=== PATIENT | female | born 1990 | race African-American/Black ===

== ENCOUNTER 2017-06-10 20:01 | Emergency (ER) | payer OTHER ==
[2017-06-10 20:27] VITALS: BP 149/80; PULSE 106; BMI 40.2
--- NOTE | 2017-06-10 21:50 | PDOC ---
History of Present Illness - General Chief Complaint: Cold Symptoms Stated Complaint: COLD SYMPTOMS Time Seen by Provider: 06/10/17 21:49 History Source: Patient Exam Limitations: No Limitations - History of Present Illness Initial Comments: 06/10/17 21:57 Patient came for evaluation of cough, body aches, fevers and chills, moist nonproductive cough, and thinks has the flu. 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 Has used TheraFlu and fluids with some resolved. Illness and fever started yesterday Timing/Duration: reports: getting worse Severity: reports: mild, moderate Associated Symptoms: reports: cough, dizziness, facial pain, fever/chills, muscle aches, nasal congestion, nasal drainage, sore throat Past History - Travel Traveled outside of the country in the last 30 days: No Close contact w/someone who was outside of country & ill: No - Past Medical History Allergies/Adverse Reactions: Allergies Allergy/AdvReac Type Severity Reaction Status Date / Time No Known Allergies Allergy Verified 01/25/16 07:10 Home Medications: Ambulatory Orders Ibuprofen [Motrin -] 400 mg PO QID PRN #28 tablet 06/10/17 Oseltamivir Phosphate [Tamiflu -] 75 mg PO BID #10 capsule 06/10/17 Anemia: Yes - Immunization History Immunization Up to Date: Yes - Suicide/Smoking/Psychosocial Hx Smoking History: Current some day smoker Have you smoked in the past 12 months: No Number of Cigarettes Smoked Daily: 4 Information on smoking cessation initiated: No Hx Alcohol Use: No Drug/Substance Use Hx: No Substance Use Type: None Review of Systems - Review of Systems Able to Perform ROS?: Yes Is the patient limited Telugu proficient: Yes Constitutional: Yes: Symptoms Reported, See HPI, Fever, Loss of Appetite, Malaise HEENTM: Yes: Symptoms Reported, Nose Congestion, Throat Pain Respiratory: Yes: Symptoms reported, See HPI, Cough Cardiac (ROS): No: Symptoms Reported Musculoskeletal: Yes: Symptoms Reported, See HPI, Muscle Pain All Other Systems: Reviewed and Negative *Physical Exam - Vital Signs Last Vital Signs Temp Pulse Resp BP Pulse Ox 102.2 F H 106 H 20 149/80 100 06/10/17 20:24 06/10/17 20:24 06/10/17 20:24 06/10/17 20:24 06/10/17 20:24 - Physical Exam General Appearance: Yes: Nourished, Appropriately Dressed, Apparent Distress, Mild Distress, Moderate Distress HEENT: positive: TMs Normal (adjusted but landmarks easily visualized), Tonsillar Erythema, Nasal Congestion, Rhinorrhea. negative: Tonsillar Exudate Neck: positive: Supple, Lymphadenopathy (R), Lymphadenopathy (L) Respiratory/Chest: positive: Lungs Clear (worse but clear). negative: Wheezing Cardiovascular: positive: Regular Rate Gastrointestinal/Abdominal: positive: Soft. negative: Tender Musculoskeletal: positive: Normal Inspection Extremity: positive: Normal Capillary Refill, Normal Inspection, Normal Range of Motion Integumentary: positive: Dry, Warm, Pale Neurologic: positive: retail buyer II-XII NML intact, Fully Oriented, Alert, Normal Mood/ Affect, Normal Response, Motor Strength 09/17 Progress Note - Progress Note Progress Note: Influenzal type illness, will treat with Tamiflu *DC/Admit/Observation/Transfer Diagnosis at time of Disposition: Influenzal acute upper respiratory infection - Discharge Dispostion Disposition: HOME Condition at time of disposition: Stable Admit: No - Referrals Referrals: Erwin Wahl [Primary Care Provider] - - Patient Instructions Printed Discharge Instructions: DI for Viral Upper Respiratory Infection -- Adult Additional Instructions: Rest, drink lots of fluids: Teas, water, soups, Pedialyte Saltwater gargles Steamy showers/seem to face break up mucus Old-fashioned treatments help! Avoid contact with others until fevers and cough resolved as this is very contagious Lots of handwashing and good hygiene Continue [id number] medications for symptomatic relief Tylenol or Motrin for fever and pain Take all of Tamiflu as directed: 1 tab every 12 hours for 5 days Followup with private physician in one to 2 days as needed or if worsening Return to emergency department for worsened symptoms, fevers, dehydration Influenza takes between 5 and 7 days for resolution To not participate in any activity, work, or school until fevers and cough are gone for at least one day - Post Discharge Activity Forms/Work/School Notes: Back to Work
[2017-06-10 21:54] VITALS: TEMP 100.4
== END 2017-06-10 22:01 | disposition home or self-care (01) ==
LOC: JERFT 20:01
DX: J11.1 Influenza due to unidentified influenza virus with other respiratory manifestations (principal); F17.210 Nicotine dependence, cigarettes, uncomplicated
CPT/HCPCS: 99281-25

== ENCOUNTER 2018-04-01 15:30 | Emergency (ER) | payer OTHER ==
[2018-04-01 15:36] VITALS: BP 150/106; PULSE 81; TEMP 98.8; BMI 40.2
--- NOTE | 2018-04-01 18:08 | PDOC ---
History of Present Illness - General Chief Complaint: Back Pain Stated Complaint: VAGINAL SxS - History of Present Illness Initial Comments: Emily Hamilton is a 27yo woman who presents today because she had her IUD removed, and there was possibly some tissue attatched to the device. The physician she saw earlier told her "it might be an embryo" and she was concerned about it. She additionally reports lower abdominal and low back cramps , but she was told that was normal after IUD removal. Past History - Past Medical History Allergies/Adverse Reactions: Allergies Allergy/AdvReac Type Severity Reaction Status Date / Time No Known Allergies Allergy Verified 04/01/18 15:36 Home Medications: Ambulatory Orders Ibuprofen [Motrin -] 400 mg PO QID PRN #28 tablet 06/10/17 Oseltamivir Phosphate [Tamiflu -] 75 mg PO BID #10 capsule 06/10/17 Anemia: Yes COPD: No - Immunization History Immunization Up to Date: Yes - Suicide/Smoking/Psychosocial Hx Smoking History: Never smoked Have you smoked in the past 12 months: No Number of Cigarettes Smoked Daily: 4 Hx Alcohol Use: No Drug/Substance Use Hx: No Substance Use Type: None Review of Systems - Review of Systems Comments:: 04/01/18 18:04 Could not obtain *Physical Exam - Vital Signs Last Vital Signs Temp Pulse Resp BP Pulse Ox 98.8 F 81 18 150/106 H 100 04/01/18 15:32 04/01/18 15:32 04/01/18 15:32 04/01/18 15:32 04/01/18 15:32 - Physical Exam Comments: 04/01/18 18:04 Declined exam Medical Decision Making - Medical Decision Making 04/01/18 18:05 Emily Hamilton is a 27yo who presented today due to concerns that there was an "embryo attached" to her IUD when it was removed earlier today. She refused to be examined and eloped from the ED prior to any workup being completed. *DC/Admit/Observation/Transfer Diagnosis at time of Disposition: Back ache - Discharge Dispostion Disposition: ELOPED Decision to Admit order: No - Referrals - Patient Instructions - Post Discharge Activity
--- NOTE | 2018-04-01 18:40 | PDOC ---
Attending Attestation - Resident Resident Name: Carine Breaux - ED Attending Attestation I have performed the following: I have examined & evaluated the patient, The case was reviewed & discussed with the resident, I agree w/resident's findings & plan, Exceptions are as noted - HPI HPI: 04/01/18 18:40 This patient eloped from the ER prior to my assessment Please see patient's chart - Physicial Exam PE: 04/01/18 18:40 Unable to assess - Medical Decision Making 04/01/18 18:40 This patient has eloped
== END 2018-04-01 18:46 | disposition left against medical advice (07) ==
LOC: JER 15:30
DX: M54.9 Dorsalgia, unspecified (principal)
CPT/HCPCS: 99281-25

== ENCOUNTER 2018-08-04 21:16 | Emergency (ER) | payer OTHER ==
--- NOTE | 2018-08-04 21:23 | PDOC ---
Rapid Medical Evaluation Time Seen by Provider: 08/04/18 21:19 Medical Evaluation: Allergies Allergy/AdvReac Type Severity Reaction Status Date / Time No Known Allergies Allergy Verified 04/01/18 15:36 08/04/18 21:19 I have performed a brief in-person evaluation of this patient. 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 Worst headache of life. Slow onset. Associated with dizziness Pertinent physical exam findings:NAD I have ordered the following:U preg CT head The patient will proceed to the ED for further evaluation. 08/04/18 21:21 08/04/18 21:22 Discharge Disposition - Diagnosis Headache - Referrals - Patient Instructions - Post Discharge Activity
[2018-08-04 21:24] VITALS: PULSE 85; TEMP 98.7; BMI 40.6
--- NOTE | 2018-08-04 21:59 | PDOC ---
History of Present Illness - General Chief Complaint: Headache Stated Complaint: REFERRAL FROM PROVIDER Time Seen by Provider: 08/04/18 21:19 - History of Present Illness Initial Comments: 08/04/18 21:58 27 yo F with no past medical history presents to the emergency department with 4 days of headache located on the left temporal and occipital region. Per the patient, she had migraines in childhood, but cannot state if these headaches feel like them. She states when she was 2 months old, she had a cyst removed from her head that was outside the skull. 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 Per the patient, the headache is constant, throbbing, 8/10, without visual changes or FND, relieves slightly with motrin, and worsens with light and sound and states "worst headache of my life". Relieves with less working at her job and in darkness. Per the patient, she states the headache was at its worst on Tuesday night and became slightly better yesterday and today. She denies trauma. Denies the following: fever, chills, ears/nose/throat pain, ear ringing , nasal congestion, recent URI, rhinorrhea, chest pain, nausea, vomiting, SOB, abdominal pain, dysuria, hematuria, diarrhea, hematochezia, and leg pain/ swelling. Endorses lightheadedness, anxiety, and increased stress. Denies poor PO intake. Shx: 2x C/S Allergies: NKDA Meds: None Social: Endorses tobacco and alcohol use. Denies substance abuse. 08/04/18 22:00 08/04/18 22:05 Past History - Past Medical History Allergies/Adverse Reactions: Allergies Allergy/AdvReac Type Severity Reaction Status Date / Time No Known Allergies Allergy Verified 04/01/18 15:36 Home Medications: Ambulatory Orders NK [No Known Home Medication] 08/04/18 Anemia: Yes COPD: No - Immunization History Immunization Up to Date: Yes - Suicide/Smoking/Psychosocial Hx Smoking History: Unknown if ever smoked Have you smoked in the past 12 months: No Number of Cigarettes Smoked Daily: 4 Information on smoking cessation initiated: No Hx Alcohol Use: No Drug/Substance Use Hx: No Substance Use Type: None Review of Systems - Review of Systems Able to Perform ROS?: Yes Is the patient limited Kiswahili proficient: No Constitutional: No: Chills, Diaphoresis, Fever HEENTM: No: Eye Pain, Blurred Vision, Recent change in vision, Double Vision, Ear Pain, Nose Pain, Throat Pain, Mouth Pain Respiratory: No: Cough, SOB with Exertion, Hemoptysis Cardiac (ROS): No: Chest Pain, Lightheadedness, Palpitations ABD/GI: No: Constipated, Diarrhea, Difficulty Swallowing, Nausea, Rectal Bleeding, Vomiting, Tarry Stools : No: Burning, Dysuria, Hematuria, Urgency Musculoskeletal: No: Back Pain, Joint Pain, Neck Pain Integumentary: No: Bruising, Erythema, Rash Neurological: Yes: Headache. No: Numbness, Tingling, Tremors, Weakness, Ataxia , Dizziness Psychiatric: No: Change in Appetite Endocrine: No: Unexplained Weight Gain Hematologic/Lymphatic: Yes: Anemia *Physical Exam - Vital Signs Last Vital Signs Temp Pulse Resp BP Pulse Ox 98.7 F 85 20 168/105 H 99 08/04/18 21:20 08/04/18 21:20 08/04/18 21:20 08/04/18 21:20 08/04/18 21:20 - Physical Exam General Appearance: Yes: Nourished, Appropriately Dressed, Obese. No: Apparent Distress, Intoxicated HEENT: positive: EOMI, TIARA, Normal ENT Inspection, Normal Voice, Symmetrical, Pharynx Normal, Hearing Grossly Normal, TM Dull (left side). negative: TMs Normal, TM Bulging, TM Erythema, Excessive drooling Neck: positive: Trachea midline, Supple. negative: Tender, Lymphadenopathy (R) , Lymphadenopathy (L), Tender lateral, Tender midline Respiratory/Chest: positive: Lungs Clear, Normal Breath Sounds. negative: Chest Tender, Respiratory Distress, Accessory Muscle Use, Crackles, Rales, Rhonchi, Stridor, Wheezing Cardiovascular: positive: Regular Rhythm, Regular Rate, S1, S2. negative: Systolic Murmur Gastrointestinal/Abdominal: positive: Normal Bowel Sounds, Flat, Soft. negative : Tender, Distended, Guarding, Rebound Lymphatic: negative: Adenopathy Musculoskeletal: positive: Normal Inspection. negative: CVA Tenderness, Vertebral Tenderness Extremity: positive: Normal Capillary Refill, Normal Inspection, Normal Range of Motion. negative: Tender, Swelling, Calf Tenderness Integumentary: positive: Normal Color, Dry, Warm. negative: Swelling, Ecchymosis Neurologic: positive: ambulance paramedic II-XII NML intact, Fully Oriented, Alert, Normal Mood/ Affect, Normal Response, Motor Strength 5/5, Finger to Nose (intact), Other (no localized neurological deficit). negative: Abnormal Cranial NS, EOM Palsy, Facial Droop, Numbness, Sensory Deficit, Confused Moderate Sedation - Procedure Monitoring Vital Signs: Procedure Monitoring Vital Signs Temperature 98.7 F 08/04/18 21:20 Pulse Rate 85 08/04/18 21:20 Respiratory Rate 20 08/04/18 21:20 Blood Pressure 168/105 H 08/04/18 21:20 O2 Sat by Pulse Oximetry (%) 99 08/04/18 21:20 ED Treatment Course - LABORATORY CBC & Chemistry Diagram: 08/04/18 22:36 08/04/18 22:36 Medical Decision Making - Medical Decision Making 27 yo F with no past medical history presents to the emergency department with 4 days of headache located on the left temporal and occipital region. Initial vitals; Initial Vital Signs Temp Pulse Resp BP Pulse Ox 98.7 F 85 20 168/105 H 99 08/04/18 21:20 08/04/18 21:20 08/04/18 21:20 08/04/18 21:20 08/04/18 21:20 Work up: ddx: migraines vs tension headache vs cluster headache vs intracranial mass vs intracranial bleed vs URI vs sinusitits. patient's symptoms improved and then worsened, making SAH unlikely. no trauma prior to the headache. patient has worsening with light and sound. Laboratory Tests 08/04/18 08/04/18 08/04/18 22:09 22:36 22:36 WBC 6.5 RBC 4.57 Hgb 11.7 Hct 35.7 MCV 78.0 L MCH 25.6 L MCHC 32.8 RDW 12.7 Plt Count 232 MPV 9.0 D Absolute Neuts (auto) 3.6 Neutrophils % 54.8 D Lymphocytes % 31.8 D Monocytes % 9.2 Eosinophils % 3.7 D Basophils % 0.5 Nucleated RBC % 0 Sodium 138 Potassium 4.3 Chloride 107 Carbon Dioxide 27 Anion Gap 4 L BUN 8 Creatinine 0.6 Creat Clearance w eGFR 118.19 Random Glucose 89 Calcium 8.2 L Total Bilirubin 0.2 AST 10 L ALT 22 Alkaline Phosphatase 61 Total Protein 6.7 Albumin 3.5 TSH 3.10 Free T4 0.78 Urine HCG, Qual Negative CT head was within normal limits. patient was given reglan, benadryl, IVF, and tylenol for pain control. the patient stated that her pain was gone after the treatment. it was recommended to the patient to have neurology follow up. the patient states she wishes to be discharged. the patient was able to ambulate throughout the department on her own volition without ataxia. neurological exam prior to discharge was unchanged from initial. Dispo: Discharge *DC/Admit/Observation/Transfer Diagnosis at time of Disposition: Headache - Discharge Dispostion Disposition: HOME Decision to Admit order: No - Referrals Referrals: Erwin Wahl [Primary Care Provider] - Hakeem Roberto MD [Staff Physician] - - Patient Instructions Printed Discharge Instructions: DI for Migraine Additional Instructions: you were seen for headache,. your labs were within normal limits and head ct was negative for any acute process. please follow up with your primary medical doctor within 1 week after discharge for follow up care and management. please follow up with the neurologist in 1 week after discharge for follow up care. please return to the emergency department if you have worsening symptoms or new concerning symptoms such as disorientation, nausea and vomiting, visual changes , and neurological deficits such as focal weakness. thank you. - Post Discharge Activity Forms/Work/School Notes: Back to Work
[2018-08-04] MEDS ORDERED: ACETAMINOPHEN 1000 MG/100 ML VIAL (NON FORMULARY) IVPB ONE (22:19)
[2018-08-04] MEDS ORDERED: SODIUM CHLORIDE 1,000 ML IV STA (22:19)
[2018-08-04] MEDS ORDERED: METOCLOPRAMIDE HCL INJECTION 10 MG/2 ML VIAL IVPB ONE (22:19)
[2018-08-04] MEDS ORDERED: METOCLOPRAMIDE HCL INJECTION 10 MG/2 ML VIAL ONE (22:26)
[2018-08-04] MEDS ORDERED: ACETAMINOPHEN INJECTION 100 ML IVPB ONE (22:27)
[2018-08-04 22:46] LABS: BASO % 0.5 % (0-2.0); EOS % 3.7 % (0-4.5); HEMATOCRIT 35.7 % (32.4-45.2); HEMOGLOBIN 11.7 GM/dL (10.7-15.3); LYMPH % 31.8 % (8-40); MCH 25.6 pg (25.7-33.7); MCHC 32.8 g/dl (32.0-36.0); MONO % 9.2 % (3.8-10.2); NEUT % 54.8 % (42.8-82.8); PLATELET COUNT 232 K/MM3 (134-434); RBC 4.57 M/mm3 (3.60-5.2); RDW 12.7 % (11.6-15.6); WHITE BLOOD COUNT 6.5 K/mm3 (4.0-10.0)
--- NOTE | 2018-08-04 22:56 | PDOC ---
Attending Attestation - Resident Resident Name: Arik Timmons - ED Attending Attestation I have performed the following: I have examined & evaluated the patient, The case was reviewed & discussed with the resident, I agree w/resident's findings & plan, Exceptions are as noted - HPI HPI: 08/04/18 22:50 The patient is a 27 year old female, with a significant PMH of anemia, who presents to the emergency department with 5 days of gradual left sided headache. The patient states the headache is constant, throbbing, 8/10 in intensity, exacerbated with light/sound and alleviated with Motrin. The patient states her headache was worse on Tuesday and has been improving yesterday and today. 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 The patient states she had migraines as a child but is unsure if her headaches feel similar. The patient also reports she had a cyst removed as a child on her head from outside her skull. The patient also endorses anxiety and increased stress. She presents to the ED today because she had to stay home from work today and needs to let her work know if she is okay. The patient denies chest pain, palpitations, or shortness of breath. Denies dizziness, focal weakness/numbness, neck stiffness Denies fever, chills, nausea, vomit, diarrhea and constipation. Denies dysuria, frequency, urgency and hematuria. Allergies: NKA - Physicial Exam PE: 08/04/18 22:52 GENERAL: Awake, alert, and fully oriented, in no acute distress HEAD: No signs of trauma EYES: PERRLA, EOMI, sclera anicteric, conjunctiva clear NECK: Normal ROM, supple, no lymphadenopathy, JVD, or masses LUNGS: Breath sounds equal, clear to auscultation bilaterally. No wheezes, and no crackles HEART: Regular rate and rhythm, normal S1 and S2, no murmurs, rubs or gallops ABDOMEN: Soft, nontender, normoactive bowel sounds. No guarding, no rebound. No masses EXTREMITIES: Normal range of motion, no edema. No cords, erythema, or tenderness BACK: No midline spinal tenderness in cervical/thoracic/lumbar region NEUROLOGICAL: Normal speech, cranial nerves intact, negative pronator drift, 5/ 5 strength in all 4 extremities, normal sensation to light touch in all 4 extremities, normal cerebellar exam, normal gait, normal tone SKIN: Warm, Dry, normal turgor, no rashes or lesions noted. - Medical Decision Making 08/04/18 21:53 27yo F presents to the ED with 5 days of gradual onset L sided throbbing headache a/w photophobia. Vitals with elevated BP, will repeat. Remianing vitals wnl Exam wnl, neck is supple, pt is neuro intact Likely migraine vs tension baptiste Low likelihood SAH as baptiste was of gradual onset, is of dull quality, with normal exam and supple neck Given new headache (pt reports has not had a headache in many years) as well as elevated BP, will obtain CTH 08/04/18 22:55 Rpt BP 151/91 Still mildly elevated but better 08/05/18 01:00 Pt reports complete resolution of headache CTH neg Labs wnl Pt requests DC home She is well appearing, clinically stable I discussed the physical exam findings, ancillary test results and final diagnoses with the patient. I answered all of the patient's questions. The patient was satisfied with the care received and felt comfortable with the discharge plan and treatment plan. The patient will call their primary care physician within 24 hours to arrange follow-up and will return to the Emergency Department with any new, persistent or worsening symptoms.
[2018-08-04 22:58] VITALS: BP 151/91
[2018-08-04 23:23] LABS: ALBUMIN 3.5 g/dl (3.4-5.0); ALK PHOS 61 U/L (45-117); ANION GAP 4 MMOL/L (8-16); BILIRUBIN,TOTAL 0.2 mg/dL (0.2-1); BLOOD UREA NITROGEN 8 mg/dL (7-18); CALCIUM 8.2 mg/dL (8.5-10.1); CHLORIDE 107 mmol/L (98-107); CO2 27 mmol/L (21-32); CREATININE 0.6 mg/dL (0.55-1.3); GLUCOSE,RANDOM 89 mg/dL (74-106); POTASSIUM 4.3 mmol/L (3.5-5.1); SGOT/AST 10 U/L (15-37); SGPT/ALT 22 U/L (13-61); SODIUM 138 mmol/L (136-145); TOT PROT 6.7 g/dl (6.4-8.2)
== END 2018-08-05 01:16 | disposition home or self-care (01) ==
LOC: JER 21:16
PROC: 3E033NZ Introduction of Analgesics, Hypnotics, Sedatives into Peripheral Vein, Percutaneous Approach (ICD-10-PCS; principal; 2018-08-04)
PROC: 3E033GC Introduction of Other Therapeutic Substance into Peripheral Vein, Percutaneous Approach (ICD-10-PCS; 2018-08-04)
PROC: 3E0337Z Introduction of Electrolytic and Water Balance Substance into Peripheral Vein, Percutaneous Approach (ICD-10-PCS; 2018-08-04)
DX: R51 Headache (principal); D64.9 Anemia, unspecified
CPT/HCPCS: 36415; 70450-TC; 80053; 84439; 84443; 84703; 85025; 96361; 96374; 96375; 99282-25; J0131; J7030